=== PATIENT | female | born 1990 | race Caucasian/White ===

== ENCOUNTER 2025-05-27 16:08 | Emergency (ER) | payer OTHER ==
[2025-05-27 16:16] VITALS: BMI 40.2
[2025-05-27 17:23] LABS: ABSOLUTE IMMATURE GRANULOCYTES 0.02 x10^3/uL (0.0-0.031); BASOPHILS # 0.06 x10^3/uL (0.01-0.08); EOSINOPHIL % 1.2 % (0.7-5.8); EOSINOPHILS # 0.12 x10^3/uL (0.04-0.36); MCHC 29.8 g/dl (32.2-35.5); MEAN CELL VOLUME 73.6 fl (79.4-94.8); MEAN PLT VOLUME 10.6 fl (9.4-12.3); MONOCYTE # 0.63 x10^3/uL (0.24-0.86); MONOCYTE % 6.1 % (4.7-12.5); RDW 18.0 % (12.1-16.8)
[2025-05-27 17:39] LABS: GLUCOSE,RANDOM 101 mg/dL (74-106); TOT PROT 7.3 g/dl (6.4-8.2)
[2025-05-27 17:40] LABS: CO2 20 mmol/L (21-32)
[2025-05-27 17:42] LABS: ALK PHOS 89 U/L (40-150)
[2025-05-27 17:44] LABS: CREATININE 0.74 mg/dL (0.55-1.3); SGOT/AST 19 U/L (5-34); SGPT/ALT 14 U/L (0-55)
[2025-05-27 18:35] LABS: HCV DIAGNOSTIC IN-HOUSE W/RFLX NON-REACTIVE (NONREACTIVE)
[2025-05-27 18:36] LABS: HIV INTERPRETATION NEGATIVE (NEGATIVE)
[2025-05-27 19:19] VITALS: BP 150/79; PULSE 64; RESP 15; TEMP 98.2
== END 2025-05-27 19:41 | disposition home or self-care (01) ==
LOC: JER 16:08
DX: G56.22 Lesion of ulnar nerve, left upper limb (principal); M25.532 Pain in left wrist
CPT/HCPCS: 36415; 71046-TC-FY; 73110-TC-LT-FY; 80053; 82550; 84484; 84703; 85025; 86803; 87389; 93005; 93010; 99285-25